=== PATIENT | male | born 1960 | race Caucasian/White ===

== ENCOUNTER 2022-06-11 14:48 | Outpatient (CLI) | payer SELFPAY ==
[2022-06-11 21:22] LABS: Albumin* 4.1 g/dL (3.3-5.0); Chloride* 106 mmol/L (96-114); Sodium* 139 mmol/L (135-149)
[2022-06-11 21:23] LABS: Potassium* 4.1 mmol/L (3.6-5.1)
[2022-06-11 21:25] LABS: Alanine Aminotransferase* 23 U/L (4-50); Alkaline Phosphatase* 101 U/L (40-150); Aspartate Amino Transferase* 29 U/L (12-35); Bilirubin Total* 0.7 mg/dL (0.1-1.5); Blood Urea Nitrogen* 14 mg/dL (7-30); Carbon Dioxide* 27 mmol/L (20-32); Estimated Glomerular Filt Rate 85 ml/min; Glucose* 100 mg/dL (60-115); Total Protein* 7.4 g/dL (6.0-8.3)
[2022-06-11 21:26] LABS: Calcium* 9.5 mg/dL (8.4-10.6)
== END 2022-06-11 14:49 | disposition home or self-care (01) ==
PROVIDERS: PCP Family Medicine; Visit Provider Family Medicine
DX: Z00.00 Encounter for general adult medical examination without abnormal findings (principal); R40.0 Somnolence
CPT/HCPCS: 80053; 84439; 84443

== ENCOUNTER 2023-07-28 14:02 | Outpatient (CLI) | payer SELFPAY | END 2023-07-28 14:03 | disposition home or self-care (01) | PROVIDERS: PCP Family Medicine; Visit Provider Family Medicine | DX: R79.89 Other specified abnormal findings of blood chemistry (principal) | CPT/HCPCS: 84439; 84443 ==

== ENCOUNTER 2025-04-22 09:35 | Outpatient (CLI) | payer MEDICARE, SELFPAY | END 2025-04-22 09:36 | disposition home or self-care (01) | PROVIDERS: PCP Family Medicine; Visit Provider Family Medicine | DX: Z00.00 Encounter for general adult medical examination without abnormal findings (principal); R94.6 Abnormal results of thyroid function studies; Z82.49 Family history of ischemic heart disease and other diseases of the circulatory system; Z11.59 Encounter for screening for other viral diseases; Z12.5 Encounter for screening for malignant neoplasm of prostate; Z13.6 Encounter for screening for cardiovascular disorders | CPT/HCPCS: 80053; 80061; 82043; 82570; 84439; 84443; 86803; G0103 ==

== ENCOUNTER 2025-05-17 14:14 | Outpatient (CLI) | payer MEDICARE, SELFPAY ==
--- NOTE | 2025-05-24 11:20 | W.PM.SLEEP ---
Sleep Study Details Details Interpreting Provider: Cristina Date of Sleep Study: 05/17/25 Sleep Study Details: STUDY TYPE:? Home unattended ? BMI:? 33.89 ORDERING PROVIDER:? Cristina INDICATION:? Concern about sleep apnea ? SLEEP SUMMARY:? 345 minutes monitored RESPIRATORY SUMMARY:? AHI 72.1 per rule 1A, 71.9 per CMS guideline Central index 27.3 Low oxygen 70% 55.5% of study oxygen less than 90% Snoring 89.5% PERIODIC LIMB MOVEMENTS OF SLEEP:? Not recorded CARDIAC:? Range 41-95, mean 67 beats per minute IMPRESSION:? Mixed central and obstructive sleep apnea. Bradycardia was also noted during the study. RECOMMENDATION: Recommend an in-lab titration for this patient. Will notify primary regarding bradycardia.
== END 2025-05-17 14:15 | disposition home or self-care (01) ==
LOC: SLEEP 14:16
PROVIDERS: PCP Family Medicine; Visit Provider Otolaryngology
DX: G47.33 Obstructive sleep apnea (adult) (pediatric) (principal); G47.10 Hypersomnia, unspecified
CPT/HCPCS: 95806

== ENCOUNTER 2025-05-20 03:39 | Outpatient (CLI) | payer MEDICARE, SELFPAY ==
[2025-05-20 15:13] VITALS: BMI 34.0
== END 2025-05-20 03:40 | disposition home or self-care (01) ==
LOC: NUTRITION 03:39
PROVIDERS: PCP Family Medicine; Visit Provider Dietitian, Registered
DX: E66.9 Obesity, unspecified (principal); Z68.34 Body mass index [BMI] 34.0-34.9, adult; Z71.3 Dietary counseling and surveillance
CPT/HCPCS: G0463

== ENCOUNTER 2025-08-23 11:22 | Outpatient (CLI) | payer MEDICARE, SELFPAY | END 2025-08-23 11:23 | disposition home or self-care (01) | PROVIDERS: PCP Family Medicine; Visit Provider Family Medicine | DX: E78.5 Hyperlipidemia, unspecified (principal); R79.89 Other specified abnormal findings of blood chemistry | CPT/HCPCS: 80061; 84439; 84443 ==

== ENCOUNTER 2025-10-13 08:33 | Outpatient (CLI) | payer MEDICARE, SELFPAY ==
--- NOTE | 2025-10-13 10:46 | P.ANES_ITS ---
Anesthesia Charges Start Date/Time Anesthesia Start Date: 10/13/25 Anesthesia Start Time: 09:54 Stop Date/Time Anesthesia Stop Date: 10/13/25 Anesthesia Stop Time: 10:43 Coding CPT Codes CPT Codes: JANES LWR INTST NDSC NOS - [id number] ([id number]) P2 - PATIENT W/MILD SYST DISEASE, QK - LANDSCAPE FOREMAN 2-4 CNCRNT ANES PROC, QX - ALKYLATION OPERATOR SVC W/ MD MED DIRECTION
--- NOTE | 2025-10-13 10:46 | W.ANESCHARGE ---
Anesthesia Charges Start Date/Time Anesthesia Start Date: 10/13/25 Anesthesia Start Time: 09:54 Stop Date/Time Anesthesia Stop Date: 10/13/25 Anesthesia Stop Time: 10:43 Coding CPT Codes CPT Codes: JANES LWR INTST NDSC NOS - [id number] ([id number]) P2 - PATIENT W/MILD SYST DISEASE, QK - ALTERATIONS EXPERT 2-4 CNCRNT ANES PROC, QX - X RAY DEVELOPING MACHINE OPERATOR SVC W/ MD MED DIRECTION
--- NOTE | 2025-10-13 10:56 | P.ANES_ITS ---
Anesthesia Charges Start Date/Time Anesthesia Start Date: 10/13/25 Anesthesia Start Time: 09:54 Stop Date/Time Anesthesia Stop Date: 10/13/25 Anesthesia Stop Time: 10:43 Coding CPT Codes CPT Codes: JANES LWR INTST NDSC NOS - [id number] ([id number]) P2 - PATIENT W/MILD SYST DISEASE, QK - SUBSTATION OPERATOR 2-4 CNCRNT ANES PROC, QX - WOOLEN TESTER SVC W/ MD MED DIRECTION
--- NOTE | 2025-10-13 10:56 | W.ANESCHARGE ---
Anesthesia Charges Start Date/Time Anesthesia Start Date: 10/13/25 Anesthesia Start Time: 09:54 Stop Date/Time Anesthesia Stop Date: 10/13/25 Anesthesia Stop Time: 10:43 Coding CPT Codes CPT Codes: JANES LWR INTST NDSC NOS - [id number] ([id number]) P2 - PATIENT W/MILD SYST DISEASE, QK - AUTOMATION CONTROLS EXPERT 2-4 CNCRNT ANES PROC, QX - REGULATORY INTERNSHIP SVC W/ MD MED DIRECTION
== END 2025-10-13 08:34 | disposition home or self-care (01) ==
LOC: OP CLINIC 08:35
PROVIDERS: PCP Family Medicine; Visit Provider Surgery
DX: Z12.11 Encounter for screening for malignant neoplasm of colon (principal); D12.0 Benign neoplasm of cecum; D12.3 Benign neoplasm of transverse colon; D12.4 Benign neoplasm of descending colon; D12.7 Benign neoplasm of rectosigmoid junction; D12.8 Benign neoplasm of rectum; R19.5 Other fecal abnormalities
CPT/HCPCS: 00811; 00812; 45380; 45385; J2704

== ENCOUNTER 2025-10-19 15:29 | Outpatient (CLI) | payer MEDICARE, SELFPAY | END 2025-10-19 15:30 | disposition home or self-care (01) | PROVIDERS: PCP Family Medicine; Visit Provider Surgery | DX: C18.0 Malignant neoplasm of cecum (principal) | CPT/HCPCS: 82378 ==

== ENCOUNTER 2025-10-27 15:22 | Outpatient (CLI) | payer MEDICARE, SELFPAY ==
[2025-10-27 15:56] LABS: Creatinine* 1.1 mg/dL (0.5-1.5); Estimated Glomerular Filt Rate 75 ml/min
--- NOTE | 2025-10-27 16:00 | CRLHL7_ITS ---
For Patients: As a result of the Century Cures Act, medical imaging exams and procedure reports are released immediately into your electronic medical record. You may view this report before your referring provider. If you have questions, please contact your health care provider. Indication: MALIGNANT NEOPLASM OF CECUM Technique: CT Chest/Abd/Pelvis W/ 103CC ISOVUE 370 intravenous contrast Please note that all CT scans at this facility use dose modulation, iterative reconstruction, and/or weight-based dosing when appropriate to reduce radiation dose to as low as reasonably achievable. Comparison: None Findings: In the chest, there is a 4.3 millimeter nodule in the left lower lobe, 4/. Mild scarring within the medial right lower lobe. No pleural effusion or pulmonary edema. No pneumothorax. No enlarged mediastinal, hilar or axillary lymph nodes. The visualized thyroid is unremarkable. No fracture. Degenerative disc disease C7-T1. In the abdomen, mild hepatic steatosis is present. There is a simple cyst in the dome of the liver which measures 2.4 cm. The spleen is normal. Normal adrenal glands. The kidneys are unremarkable. Normal pancreas. Gallbladder normal. No hiatal hernia. No retroperitoneal or mesenteric adenopathy. In the pelvis, the bladder is normal. Prostate calcifications are present. No bowel obstruction or free air. No free fluid or abscess. Normal appendix. No bowel wall thickening is present. No adjacent stranding noted. No enlarged pelvic or inguinal lymph nodes. Grade 1 degenerative spondylolisthesis of L5 on S1. Degenerative disc disease L5-S1 with discogenic sclerosis and vacuum disc phenomenon. Small incidental fat filled umbilical hernia. Impression: No adenopathy within the chest, abdomen or pelvis. No suspicious hepatic lesion. 4.3 millimeter pulmonary nodule within the left lower lobe. Please note that all CT scans at this facility use dose modulation, iterative reconstruction, and/or weight-based dosing when appropriate to reduce radiation dose to as low as reasonably achievable. Dictated by Sarbjit Lomas MD @ 10/28/2025 10:35:59 AM (Electronically Signed)
== END 2025-10-27 15:23 | disposition home or self-care (01) ==
LOC: CT 15:22
PROVIDERS: PCP Family Medicine; Visit Provider Surgery
DX: C18.0 Malignant neoplasm of cecum (principal); R91.8 Other nonspecific abnormal finding of lung field
CPT/HCPCS: 36415; 71260; 74177; 82565; Q9967